=== PATIENT | male | born 1980 | race African-American/Black ===

== ENCOUNTER 2022-05-02 21:02 | Emergency (ER) | payer OTHER ==
[2022-05-02] MEDS ORDERED: Ibuprofen 600 MG Tab PO ONE (22:42)
[2022-05-02] MEDS ORDERED: Cyclobenzaprine 10 MG Tab PO ONE (22:42)
== END 2022-05-02 22:53 | disposition home or self-care (01) ==
LOC: MW.ED 21:02
DX: M54.50 Low back pain, unspecified (principal); Z88.0 Allergy status to penicillin; Z79.899 Other long term (current) drug therapy; V69.00XA Driver of heavy transport vehicle injured in collision with unspecified motor vehicles in nontraffic accident, initial encounter; Y92.410 Unspecified street and highway as the place of occurrence of the external cause
CPT/HCPCS: 99283; A9270

== ENCOUNTER 2025-01-02 01:11 | Emergency (ER) | payer OTHER | END 2025-01-02 02:48 | disposition home or self-care (01) | LOC: MW.ED 01:11 | DX: S06.0XAA Concussion with loss of consciousness status unknown, initial encounter (principal); Z88.0 Allergy status to penicillin; F17.210 Nicotine dependence, cigarettes, uncomplicated; V49.49XA Driver injured in collision with other motor vehicles in traffic accident, initial encounter; Y93.89 Activity, other specified | CPT/HCPCS: 70450; 70450-26; 99283; 99284 ==